=== PATIENT | male | born 1965 | race Two or more races ===

== ENCOUNTER 2024-12-22 11:43 | Emergency (ER) | payer SELFPAY ==
[~2024-12-22] VITALS: Ht 167.6 cm; Wt 81.8 kg
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
--- NOTE | 2024-12-22 12:12 | ECG ---
[facility] Test Date: 2024-12-22 Test Time: 11:56:18 Pat Name: HARRIS BRIONES Department: ER Room: Gender: M Account Executive: DANNY : 1965 Requested By: LESLY STROUD Order Number: [id number] Reading MD: Measurements Intervals [place] Rate: 76 P: 54 VA: 137 QRS: 40 QRSD: 81 T: 30 QT: 363 QTc: 409 Interpretive Statements Sinus rhythm Please click the below link to view image of tracing.
[2024-12-22] MEDS: ONDANSETRON HCL 4 MG/2 ML VIAL IV ONE (12:24)
[2024-12-22] MEDS: MORPHINE SULFATE 4 MG/ML SYR/VIAL IV ONE (12:26)
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
[2024-12-22] MEDS ORDERED: GABA300T4 PO (13:53)
[2024-12-22] MEDS ORDERED: CYCL-838 PO (13:53)
[2024-12-22 14:26] VITALS: BP 116/82; PULSE 78; RESP 20; TEMP 98; O2SAT 96
== END 2024-12-22 14:27 | disposition home or self-care (01) ==
LOC: EDBD 11:43 → ER 11:43
DX: S13.4XXA Sprain of ligaments of cervical spine, initial encounter (principal); S20.219A Contusion of unspecified front wall of thorax, initial encounter; S09.8XXA Other specified injuries of head, initial encounter; V89.2XXA Person injured in unspecified motor-vehicle accident, traffic, initial encounter; Y93.I9 Activity, other involving external motion; Y92.488 Other paved roadways as the place of occurrence of the external cause; Y99.8 Other external cause status
CPT/HCPCS: 70450; 71250; 72125; 93005; 96374; 96375; 99285; J2270; J2405